=== PATIENT | female | born 1980 | race Caucasian/White ===

== ENCOUNTER 2020-05-21 08:51 | Emergency (ER) | payer MEDICAID ==
[~2020-05-21] VITALS: Ht 167.6 cm; Wt 117.9 kg
[~2020-05-21 08:51] MED LIST: PRENATAL VITAMINS
[2020-05-21] MEDS ORDERED: TETANUS-DIPTH-ACEL PERTUSSIS 0.5ML SYR Tdap IM ONE (09:30)
[2020-05-21] MEDS ORDERED: ACETAMINOPHEN 500 MG TAB PO ONE (09:30)
[2020-05-21] MEDS ORDERED: LIDOCAINE 1% HCL (LOCAL ANESTH.) INJ 20ML MDV ONE (09:36)
[2020-05-21 09:56] VITALS: BP 140/74
== END 2020-05-21 10:07 | disposition home or self-care (01) ==
LOC: ER 08:51
DX: S61.210A Laceration without foreign body of right index finger without damage to nail, initial encounter (principal); X58.XXXA Exposure to other specified factors, initial encounter; Y93.89 Activity, other specified; Y92.89 Other specified places as the place of occurrence of the external cause; Y99.8 Other external cause status
CPT/HCPCS: 12001; 90471; 90715; 99283; J2001

== ENCOUNTER 2023-04-09 14:38 | Emergency (ER) | payer MEDICAID ==
[~2023-04-09] VITALS: Ht 167.6 cm; Wt 125.9 kg
[2023-04-09 16:04] VITALS: BP 119/76; PULSE 92; RESP 18; TEMP 97.6; O2SAT 95
[2023-04-09] MEDS ORDERED: TETANUS-DIPTH-ACEL PERTUSSIS 0.5ML SYR Tdap IM ONE (16:15)
[2023-04-09] MEDS ORDERED: AUG875T PO (16:38)
[2023-04-09] MEDS ORDERED: IBUP-1456 PO (16:38)
== END 2023-04-09 16:42 | disposition home or self-care (01) ==
LOC: ER 14:38
DX: S61.031A Puncture wound without foreign body of right thumb without damage to nail, initial encounter (principal); E66.01 Morbid (severe) obesity due to excess calories; Z68.41 Body mass index [BMI] 40.0-44.9, adult; Z98.890 Other specified postprocedural states; Z79.899 Other long term (current) drug therapy; W53.11XA Bitten by rat, initial encounter; Y93.89 Activity, other specified; Y92.89 Other specified places as the place of occurrence of the external cause; Y99.8 Other external cause status
CPT/HCPCS: 90471; 90715